=== PATIENT | female | born 1965 | race Two or more races ===

== ENCOUNTER 2017-04-09 08:22 | Outpatient (CLI) | payer OTHER | END 2017-04-09 08:30 | disposition home or self-care (01) | LOC: RAD 08:22 | DX: N92.1 Excessive and frequent menstruation with irregular cycle (principal) ==

== ENCOUNTER 2017-04-13 08:30 | Inpatient (IN) | payer OTHER ==
[~2017-04-13] VITALS: Ht 162.6 cm; Wt 68.5 kg
[2017-04-13] MEDS ORDERED: LO-OVRAL PO (09:20)
[2017-04-24] MEDS ORDERED: LOW-OGESTREL-21 EACH PO (10:22)
[2017-04-25] MEDS ORDERED: LEVSIN/SL0.125 MG PO (06:30)
[2017-04-25] MEDS ORDERED: PERCOCET 5-3251 EACH PO (06:30)
[2017-04-25] MEDS ORDERED: CIPRO500 MG PO (06:30)
== END 2017-04-25 12:54 | DRG 743 ==
LOC: OB/GYN 04-23 06:35 → O/R 04-23 06:35 → CIR.AMB 04-23 08:30 → EDSTATUS 04-23 08:37 → SURH 04-23 08:39 → OB/GYN 04-23 14:49
PROVIDERS: Obstetrics & Gynecology Gynecology
PROC: 0UT74ZZ Resection of Bilateral Fallopian Tubes, Percutaneous Endoscopic Approach (ICD-10-PCS; 2017-04-23)
PROC: 0UT94ZZ Resection of Uterus, Percutaneous Endoscopic Approach (ICD-10-PCS; principal; 2017-04-23 11:30)
DX: D25.1 Intramural leiomyoma of uterus (principal); N80.0 Endometriosis of uterus; N92.1 Excessive and frequent menstruation with irregular cycle; N93.8 Other specified abnormal uterine and vaginal bleeding; N72 Inflammatory disease of cervix uteri